=== PATIENT | female | born 1955 | race Caucasian/White ===

== ENCOUNTER 2024-11-24 12:23 | Emergency (ER) | payer MEDICARE ==
[2024-11-24 12:42] LABS: #Basophils 0.05 10x3/uL (0.0-0.2); #Eosinophils 0.11 10x3/uL (0.0-0.7); #Monocytes 0.57 10x3/uL (0.11-0.59); #Neutrophils 5.02 10x3/uL (1.40-6.50); %Basophils 0.6 % (0.0-1.0); %Eosinophils 1.4 % (0.0-10.0); %Lymphocytes 25.4 % (21.0-51.0); %Monocytes 7.4 % (0.0-10.0); %Neutrophils 64.9 % (42.0-75.0); Hematocrit 39.9 % (36.0-47.0); Hemoglobin 12.9 g/dL (12.0-16.0); Mean Corpuscular Hemoglobin 28.6 pg (27.0-31.0); Mean Corpuscular Volume 88.5 fL (78.0-98.0); Platelet Count 236 10x3/uL (130-400); Red Blood Cell (RBC) Count 4.51 mill/uL (4.20-5.40); White Blood Cell (WBC) Count 7.73 10x3/uL (4.8-10.8)
[2024-11-24] MEDS ORDERED: Famotidine/PF 20 mg/2ml Vial ONE (13:03)
[2024-11-24] MEDS ORDERED: diphenhydrAMINE 50 MG/ML VIAL ONE (13:03)
[2024-11-24 13:08] LABS: ALT (SGPT) 14 U/L (Less than 34); AST (SGOT) 19 U/L (11-34); Albumin 3.3 g/dL (3.1-4.5); Alkaline Phosphatase 58 U/L (40-110); Anion Gap 10 mmol/L (10-20); BUN (Urea Nitrogen) 8 mg/dL (9.8-20.1); Bilirubin, Total 0.3 mg/dL (0.3-1.2); Calc. Creatinine Clearance 0 mL/min (70-130); Calcium 8.5 mg/dL (7.8-10.44); Carbon Dioxide 23 mmol/L (23-31); Chloride 109 mmol/L (98-107); Globulin 2.9 g/dL (2.4-3.5); Glucose 106 mg/dL (80-115); Potassium 4.2 mmol/L (3.5-5.1); Sodium 138 mmol/L (136-145)
== END 2024-11-24 17:33 | disposition home or self-care (01) ==
LOC: ERS 12:23
DX: R06.02 Shortness of breath (principal); I25.10 Atherosclerotic heart disease of native coronary artery without angina pectoris; I50.30 Unspecified diastolic (congestive) heart failure; J45.909 Unspecified asthma, uncomplicated; C50.919 Malignant neoplasm of unspecified site of unspecified female breast; F17.210 Nicotine dependence, cigarettes, uncomplicated; Z79.82 Long term (current) use of aspirin; Z79.02 Long term (current) use of antithrombotics/antiplatelets; Z79.899 Other long term (current) drug therapy
CPT/HCPCS: 71045; 80053; 83605; 83880; 84484 ×2; 85025; 85379; 93005; J1200; J1308; J2919; 36415; 96374; 96375